=== PATIENT | male | born 2000 | race Caucasian/White ===

== ENCOUNTER 2021-05-22 11:27 | Emergency (ER) | payer OTHER ==
--- NOTE | 2021-05-22 12:26 | ED Physician Documentation ---
PD HPI CHEST PAIN - Stated complaint Stated Complaint: CHEST PX - Chief complaint Chief Complaint: Cardiac - History obtained from History obtained from: Patient - History of Present Illness Timing - onset: Yesterday Timing - onset during: Rest, Light activity (sitting at desk doing computer work, turned to his left to talk to someone and has pain/pressure left chest for seconds to a minute, along with feeling lightheaded for 1-2 minutes. Then improved and has felt okay since. Concerned about it though.) Timing - duration: Minutes (1-2) Timing - details: Abrupt onset, Now resolved Quality: Tightness, Aching. No: Sharp, Tearing Location: Substernal, Left chest Radiation: No: Jaw, Neck, Back Associated symptoms: Feeling faint / dizzy. No: Shortness of air, Nausea, General Weakness, Palpitations Similar symptoms before: Has not had sx before Recently seen: Not recently seen Review of Systems Constitutional: denies: Fever, Chills Nose: denies: Rhinorrhea / runny nose, Congestion Throat: denies: Sore throat Respiratory: denies: Cough GI: denies: Abdominal Pain, Nausea, Vomiting Skin: denies: Rash, Lesions Neurologic: denies: Near syncope PD PAST MEDICAL HISTORY - Past Medical History Cardiovascular: None Respiratory: None Neuro: None Endocrine/Autoimmune: None - Present Medications Home Medications: Ambulatory Orders Medication Instructions Recorded Confirmed No Known Home Medications 05/22/21 05/22/21 - Allergies Allergies/Adverse Reactions: Allergies Allergy/AdvReac Type Severity Reaction Status Date / Time No Known Drug Allergies Allergy Verified 05/22/21 11:41 PD ED PE NORMAL - Vitals Vital signs reviewed: Yes - General General: Alert and oriented X 3, No acute distress, Well developed/nourished - HEENT HEENT: Pharynx benign - Neck Neck: Supple, no meningeal sign, No adenopathy - Cardiac Cardiac: RRR, No murmur - Respiratory Respiratory: Clear bilaterally, Other (no chestwall tenderness) - Abdomen Abdomen: Soft, Non tender Results - Vitals Vitals: Vital Signs - 24 hr 05/22/21 05/22/21 05/22/21 11:36 11:45 13:48 Temperature 37.1 C 37.1 C 36.5 C Heart Rate 89 70 81 Respiratory 16 20 16 Rate Blood Pressure 147/77 H 147/77 H 119/81 H O2 Saturation 98 100 99 Oxygen O2 Source Room air - EKG (time done) 11:38 Rate: Rate (enter#) (98) Rhythm: NSR Webster: Normal Intervals: Normal DE QRS: Normal Ischemia: Normal ST segments. No: ST elevation c/w ischemia, ST depression - Labs Labs: Laboratory Tests 05/22/21 05/22/21 13:12 13:12 Sodium 139 Potassium 3.8 Chloride 103 Carbon Dioxide 28 Anion Gap 8.0 BUN 15 Creatinine 0.9 Estimated GFR (MDRD) 106 Glucose 106 H Calcium 9.3 Total Bilirubin 2.8 H AST 20 ALT 24 Alkaline Phosphatase 47 Troponin I High Sens < 2.3 L Total Protein 8.3 H Albumin 4.8 Globulin 3.5 Albumin/Globulin Ratio 1.4 Lipase 24 - Rads (name of study) chest xray Radiology: Prelim report reviewed (no infiltrates nor acute process), See rad report PD MEDICAL DECISION MAKING - ED course Complexity details: reviewed results, re-evaluated patient, considered differential (brief discomfort yesterday. Low risk for ACS or vascular process. Can get CP labs and ECG/CXR.), d/w patient Departure - Departure Disposition: Home, Self Care Clinical Impression: Discomfort in chest Clinical Impression: (Ruled Out): Myocardial infarction Condition: Stable Record reviewed to determine appropriate education?: Yes Instructions: ED Chest Pain Atypical Unkn Cause Follow-Up: CARLIN SHAFFER III, MD [Primary Care Provider] - Comments: Your EKG, chest x-ray, blood tests are normal. No signs of significant cause of your pain from yesterday such as heart attack, collapsed lung, fluid around the lung or heart, pneumonia, electrolyte problems. Unclear the cause of your symptoms. That may have been musculoskeletal or such. Normal activity diet etc. are okay. Recheck if recurrent episodes. Discharge Date/Time: 05/22/21 14:06
[2021-05-22 13:35] LABS: ALBUMIN 4.8 g/dL (3.2-5.5); ALBUMIN/GLOBULIN RATIO 1.4 (1.0-2.2); BILIRUBIN,TOTAL 2.8 mg/dL (0.2-1.0); CALCIUM 9.3 mg/dL (8.5-10.3); CREATININE 0.9 mg/dL (0.6-1.2); POTASSIUM 3.8 mmol/L (3.5-5.0); TOTAL PROTEIN 8.3 g/dL (6.7-8.2)
[2021-05-22 13:49] VITALS: BP 119/81
== END 2021-05-22 14:06 | disposition home or self-care (01) ==
LOC: ED 11:27
DX: R07.89 Other chest pain (principal)
CPT/HCPCS: 36415; 80053; 83690; 84484; 93005; 99282; 99284

== ENCOUNTER 2021-05-31 16:51 | Emergency (ER) | payer OTHER ==
[2021-05-31 17:04] VITALS: BP 129/84
--- NOTE | 2021-05-31 17:18 | ED Physician Documentation ---
PD HPI OPHTHO - Stated complaint Stated Complaint: LEFT EYE PX - Chief complaint Chief Complaint: Heent - History obtained from History obtained from: Patient - History of Present Illness Timing - onset: How many years ago (2) Pain level max: 1 Pain level now: 0 Location: Left Quality / character: Aching Associated symptoms: No: Redness, Swelling, Tearing, Discharge, Matting, FB sensation, Photophobia, Double vision, Decreased vision, Loss of vision, Headache Contributing factors: Wears glasses. No: Exposed to conjunctivitis, FB, Chemical exposure, acid, Chemical exposure, base, Blunt trauma, Penetrating trauma, Wears contacts - Additional information Additional information: 20-year-old male presents to the emergency department with complaint of floaters in his left eye for the past 2 years and occasionally feels a pain in the back of his eye. Sometimes this happens a few times a day, sometimes a few times per week. No vision changes. Does not wear contacts. Does wear glasses. States he has never seen an eye doctor about this. No changes today. No fevers. No chills. No head injury. No trauma. No pain with extraocular movements. Symptoms last for a few seconds to few minutes. Review of Systems Constitutional: denies: Fever Eyes: denies: Loss of vision, Decreased vision, Photophobia, Discharge, Irritation Nose: denies: Rhinorrhea / runny nose, Congestion Skin: denies: Rash PD PAST MEDICAL HISTORY - Past Medical History Cardiovascular: None Respiratory: None Neuro: None Endocrine/Autoimmune: None - Past Surgical History Past Surgical History: No - Present Medications Home Medications: Ambulatory Orders Medication Instructions Recorded Confirmed No Known Home Medications 05/22/21 05/22/21 - Allergies Allergies/Adverse Reactions: Allergies Allergy/AdvReac Type Severity Reaction Status Date / Time No Known Drug Allergies Allergy Verified 05/31/21 17:03 - Social History Does the pt smoke?: No Smoking Status: Never smoker Does the pt drink ETOH?: Yes Does the pt have substance abuse?: No - Immunizations Immunizations are current?: Yes PD ED PE NORMAL - Vitals Vital signs reviewed: Yes - General General: Alert and oriented X 3, No acute distress - HEENT HEENT: PERRL, EOMI, Moist mucous membranes, Other (No acute abnormalities on funduscopic exam appreciated.) - Derm Derm: Warm and dry - Neuro Neuro: Alert and oriented X 3 - Psych Psych: Normal mood, Normal affect Results - Vitals Vitals: Vital Signs - 24 hr 05/31/21 17:00 Temperature 37.0 C Heart Rate 104 H Respiratory 16 Rate Blood Pressure 129/84 H O2 Saturation 97 Oxygen O2 Source Room air PD MEDICAL DECISION MAKING - ED course Complexity details: considered differential, d/w patient ED course: I do not see any acute abnormalities on funduscopic exam. Normal vision. Unclear etiology of his symptoms. No tenderness over the temporal artery. Recommend that he follow-up with an machine design teacher for a detailed exam. Patient counseled regarding signs and symptoms for which I believe and urgent re-evaluation would be necessary. Patient with good understanding of and agreement to plan and is comfortable going home at this time This document was made in part using voice recognition software. While efforts are made to proofread this document, sound alike and grammatical errors may occur. Departure - Departure Disposition: 01 Home, Self Care Clinical Impression: Left eye pain Condition: Good Instructions: Flashes and Floaters Follow-Up: Doug Garcia MD [Provider Admit Priv/Credential] - Within 3 Days Comments: Please call Dr. Garcia's office for a follow-up. The cause of your symptoms is unclear and you need a full dilated eye exam by an machine design teacher. Please make sure you follow-up with ophthalmology. Discharge Date/Time: 05/31/21 17:30
== END 2021-05-31 17:30 | disposition home or self-care (01) ==
LOC: ED 16:51
DX: H57.12 Ocular pain, left eye (principal)
CPT/HCPCS: 99281; 99282